=== PATIENT | male | born 2005 | race African-American/Black ===

== ENCOUNTER 2025-09-07 19:38 | Emergency (ER) | payer OTHER, SELFPAY ==
--- NOTE | 2025-09-07 19:41 | CRLHL7_ITS ---
For Patients: As a result of the Century Cures Act, medical imaging exams and procedure reports are released immediately into your electronic medical record. You may view this report before your referring provider. If you have questions, please contact your health care provider. Indication: Trauma. Technique: Right ankle, 3 views. Comparison: None. Findings/Impression: Bones: Alignment is normal. Age indeterminate acute posterior talar process fracture, best seen on lateral imaging. Recommend correlation with point tenderness. Otherwise, no displaced fractures or bone lesions. Joint spaces: Unremarkable. Soft tissues: Focal soft tissue swelling about the lateral malleolus. Dictated by Solo Penn MD @ 09/07/2025 8:19:25 PM (Electronically Signed)
[2025-09-07 19:59] VITALS: BP 124/72; PULSE 76; RESP 18; TEMP 36.7; O2SAT 97; BMI 23.4
--- NOTE | 2025-09-07 20:07 | ED_ITS ---
HPI - General Adult General Chief complaint: Extremity Pain/Injury, Lower Stated complaint: Right Ankle Injury Time Seen by Provider: 09/07/25 20:05 History of Present Illness HPI narrative: pt playing volleyball, another player landed on his ankle. Pt heard and felt a pop and tear. Event happened 163? Pt took two pills of Tylenol this afternoon. 19-year-old man presenting to the emergency department with complaint of right ankle pain following unspecified mechanism of injury while playing volleyball. It sounds like it might have been an inversion injury but is not exactly clear. He did take some acetaminophen. Is now 5 hours later. Hurts to bear weight. In busy emergency department by the time I am seeing him images have already been done. No other injury was sustained. Pain demonstrated generalized to the ankle. Related Data Allergies Allergy/AdvReac Type Severity Reaction Status Date / Time No Known Drug Allergies Allergy Verified 09/07/25 20:03 Review of Systems Status of ROS: Reports: 6 or more systems reviewed and unremarkable except as noted in History and below Exam Narrative: Exam Narrative: Pleasant. NAD. In exam bed with leg elevated. Examination of right ankle shows marked soft swelling about the right lateral malleolus. There is tenderness I think primarily anterolateral to the lateral malleolus. Does not have medial malleolar pain. No weakness/instability to lateral or drawer testing. Well-perfused peripherally. No pain over navicular bone or base of 5th metatarsal. Const: Vital Signs, click to edit/add: Vital Signs - 24 hr 09/07/25 19:59 Temperature 98.0 F Pulse Rate [Left P ulse Oximeter] 76 Respiratory Rate 18 Blood Pressure [Ri ght Upper Arm] 124/72 Pulse Oximetry 97 Oxygen Delivery Me thod Room Air Documenting provider has reviewed patient's vital signs: yes Course Vital Signs Vital signs: Initial Vital Signs Temperature 98.0 F 09/07/25 19:59 Temperature Source Temporal Artery Scan 09/07/25 19:59 Pulse Rate 76 09/07/25 19:59 Pulse Rhythm Regular 09/07/25 19:59 Respiratory Rate 18 09/07/25 19:59 Blood Pressure 124/72 09/07/25 19:59 Blood Pressure Mean 89 09/07/25 19:59 Blood Pressure Position Sitting 09/07/25 19:59 Pulse Oximetry 97 09/07/25 19:59 Oxygen Delivery Method Room Air 09/07/25 19:59 Vital Signs Temperature 98.0 F 09/07/25 19:59 Pulse Rate 76 09/07/25 19:59 Respiratory Rate 18 09/07/25 19:59 Blood Pressure 124/72 09/07/25 19:59 Pulse Oximetry 97 09/07/25 19:59 Oxygen Delivery Method Room Air 09/07/25 19:59 Temperature 98.0 F 09/07/25 19:59 Pulse Rate 76 09/07/25 19:59 Respiratory Rate 18 09/07/25 19:59 Blood Pressure 124/72 09/07/25 19:59 Pulse Oximetry 97 09/07/25 19:59 Oxygen Delivery Method Room Air 09/07/25 19:59 Medical Decision Making MDM Narrative Medical decision making narrative: I would suspect primarily an inversion ankle sprain. Certainly possible avulsion fracture. As noted images were done. By my independent review of three-view of the right ankle I cannot appreciate any acute bony abnormality. Mortise appears to be intact. There is some bony abnormality maybe a fracture off the posterior aspect of the talus. I do not think this is new. On re-examination he does not have point tenderness about the Achilles or posterior talar aspect. Discussed bracing. Given Chago wrap. Is able to bear little bit of weight but cannot walk. I do not have an air cast for him at this time. Given crutches. Radiology over-read below Indication: Trauma. Technique: Right ankle, 3 views. Comparison: None. Findings/Impression: Bones: Alignment is normal. Age indeterminate acute posterior talar process fracture, best seen on lateral imaging. Recommend correlation with point tenderness. Otherwise, no displaced fractures or bone lesions. Joint spaces: Unremarkable. Soft tissues: Focal soft tissue swelling about the lateral malleolus. Dictated by Solo Penn MD @ 09/07/2025 8:19:25 PM See patient discharge plan for further discussion See handout on rehabilitation of ankle sprain. Important to elevate and apply compression. Would also use of those ice bags as described (fill with about a tray of ice and then some water) to ice your ankle 2 to 3 times daily the next few days. Hold on ice pack with 6 in Chago wrap. Use crutches to rest your ankle over the next couple of days than doing some mobility circles as described your rehab. Can take up to 600 mg of ibuprofen or 850 mg of acetaminophen per dose. You should be feeling a little bit better every couple of days. You might be helped an Aircast to encourage early mobility or confidence as you start bearing weight after a few days and up to 2 weeks. When you begin playing again, you might benefit from a hinged ankle brace like [employer]kle; at least for a while. It really allows for good mobility. Discharge Plan Discharge Clinical Impression: Ankle sprain Patient Disposition: Home w/ Parent or Adult Condition: Stable Additional Instructions: See handout on rehabilitation of ankle sprain. Important to elevate and apply compression. Would also use of those ice bags as described (fill with about a tray of ice and then some water) to ice your ankle 2 to 3 times daily the next few days. Hold on ice pack with 6 in Chago wrap. Use crutches to rest your ankle over the next couple of days than doing some mobility circles as described your rehab. Can take up to 600 mg of ibuprofen or 850 mg of acetaminophen per dose. You should be feeling a little bit better every couple of days. You might be helped an Aircast to encourage early mobility or confidence as you start bearing weight after a few days and up to 2 weeks. When you begin playing again, you might benefit from a hinged ankle brace like [employer]; at least for a while. It really allows for good mobility. Activity Level: No Restrictions Discharge Diet: Regular Stand Alone Forms: 004 [employer] Info Instructions
== END 2025-09-07 20:59 | disposition home or self-care (01) ==
PROVIDERS: Emergency Provider Family Medicine
DX: S93.401A Sprain of unspecified ligament of right ankle, initial encounter (principal); W03.XXXA Other fall on same level due to collision with another person, initial encounter; Y93.68 Activity, volleyball (beach) (court)
CPT/HCPCS: 73610; 99283; 99284